=== PATIENT | female | born 1995 | race Caucasian/White ===

== ENCOUNTER 2024-10-24 16:02 | Emergency (ER) | payer OTHER, SELFPAY ==
[2024-10-24 16:16] VITALS: BP 131/72; PULSE 88; RESP 16; TEMP 36.3; O2SAT 97; BMI 32.8
--- NOTE | 2024-10-24 16:22 | DI.RAD.S_ITS ---
PROCEDURE: XR FOOT RT MIN 3V INDICATIONS: R foot swelling, great toe joint TECHNIQUE: 3 views of the foot were acquired. COMPARISON: None. FINDINGS: Bones: No fractures or dislocations. No suspicious bony lesions. Soft tissues: No tibiotalar joint effusion. Achilles tendon appears normal. IMPRESSION: No acute bony abnormality. Dictated by: Bryant Magaña M.D. on 10/24/2024 at 16:49 Approved by: Bryant Magaña M.D. on 10/24/2024 at 16:50
[2024-10-24 20:02] VITALS: BP 129/76; PULSE 80; RESP 18; O2SAT 96
--- NOTE | 2024-10-24 20:26 | ED.LOWEXIN ---
HPI - Extremity Injury (Lower) General Chief Complaint: Extremity Injury, Lower Stated Complaint: R Foot Px, Swelling Time Seen by Provider: 10/24/24 20:04 History of Present Illness HPI Narrative: 29-year-old female presents for right foot pain. States that she rolled her foot 10/11 and felt a pop. She went to the walk-in clinic on last week where X rays showed no fracture. She was given a postop shoe, which she was wearing as instructed, but she continues to have pain. Not relieved with ibuprofen. Patient has a follow up appointment in 5 days with Podiatry and maryann, but is here to request a 2nd opinion and assistance with pain control. Related Data Previous Rx's Medication Instructions Recorded tramadol 50 mg tablet 50 mg PO Q8H PRN pain #8 tabs 10/24/24 Allergies Allergy/AdvReac Type Severity Reaction Status Date / Time oxycodone AdvReac Vomiting Verified 10/24/24 20:52 Exam Initial Vital Signs Initial Vital Signs: Vital Signs Temperature 97.4 F L 10/24/24 16:16 Pulse Rate 88 10/24/24 16:16 Respiratory Rate 16 10/24/24 16:16 Blood Pressure 131/72 10/24/24 16:16 Pulse Oximetry 97 10/24/24 16:16 Oxygen Delivery Method Room Air 10/24/24 16:16 Const: Awake, alert, no acute distress, nontoxic appearing MSK: no deformity, tenderness along ball of R foot, DP pulses palpable Skin: Warm, Dry, intact, no rashes Neuro: AO x3, CN II-XII grossly intact, moves all extremities Course Orders Ordered: Discontinued Medications Tramadol HCl (Tramadol 50 Mg Prepack) 1 bottle MISC DIRECTED ONE Stop: 10/24/24 20:27 Last Admin: 10/24/24 20:44 Dose: 1 bottle Documented By: REHAN Vital Signs Vital signs: Vital Signs - 8 hr 10/24/24 20:02 10/24/24 20:51 Pulse Rate 80 86 Respiratory Rate 18 16 Blood Pressure 129/76 120/70 Pulse Oximetry 96 97 Oxygen Delivery Method Room Air Room Air MDM - Extremity Injury (Lower) Imaging Data Extremity x-ray #1: Radiologist's Impression: ADDENDUMThis report includes an Addendum and supersedes previous reports for this exam. PROCEDURE: XR FOOT RT MIN 3V INDICATIONS: R foot swelling, great toe joint TECHNIQUE: 3 views of the foot were acquired. COMPARISON: None. FINDINGS: Bones: No fractures or dislocations. No suspicious bony lesions. Soft tissues: No tibiotalar joint effusion. Achilles tendon appears normal. IMPRESSION: No acute bony abnormality. Dictated by: Bryant Magaña M.D. on 10/24/2024 at 16:49 Approved by: Bryant Magaña M.D. on 10/24/2024 at 16:50 ADDENDUM: Nondisplaced lucency is present midportion the sesamoid the 1st metatarsal. This could represent a congenital bipartite sesamoid or fracture. No priors are available comparison and recommend correlation point tenderness. Dictated by: Adriana Gray M.D. on 10/24/2024 at 21:10 Approved by: Adriana Gray M.D. on 10/24/2024 at 21:10 MDM Narrative Medical decision making narrative: Persistent foot pain after injury 2-1/2 weeks ago. Exam relatively benign, patient was able to bear weight and walk on the foot with the ortho shoe in place. X-ray imaging shows possible bipartite versus fracture of sesamoid bone. Since this is where the patient was most tender plan to treat conservatively as fracture. She was counseled to continue to use the shoe. Pain medications prescribed. Counseled to keep her podiatry appointment as scheduled. Printout images of her x-rays sent with patient. Discharge Plan Departure Patient Disposition: Home Clinical Impression: Acute foot pain Instructions: DI for Toe Fracture Activity Restrictions/Additional Instructions: The x-rays of your foot showed that you have either a ?bipartite? sesamoid bone versus a fracture of the bone. They appear identical on x-ray imaging, but since you are having pain in his region we are going to treat this as a fracture. Continue to take Tylenol and ibuprofen as needed for pain or discomfort. Apply ice to areas of swelling, and elevate your foot at rest. A short course of pain medications has been sent to your pharmacy. Do not take this medication with alcohol or before driving as it can cause drowsiness. This medication can also cause constipation, so make sure that you take a stool softener with this medication. Prescriptions: New tramadol 50 mg tablet 50 mg PO Q8H PRN (Reason: pain) Qty: 8 0RF Stand Alone Forms: Patient Portal/API/Survey
[2024-10-24] MEDS: TRAMADOL 50 MG PREPACK 1 BOTTLE MISC (20:44)
[2024-10-24 20:51] VITALS: BP 120/70; PULSE 86; RESP 16; O2SAT 97
== END 2024-10-24 21:19 | disposition home or self-care (01) ==
PROVIDERS: Emergency Provider Emergency Medicine
DX: S99.921D Unspecified injury of right foot, subsequent encounter (principal); X50.1XXD Overexertion from prolonged static or awkward postures, subsequent encounter
CPT/HCPCS: 73630; 99281; 99283